=== PATIENT | female | born 2000 | race African-American/Black ===

== ENCOUNTER 2019-10-01 16:06 | Emergency (ER) | payer OTHER, SELFPAY ==
--- NOTE | ~2019-10-01 | CT_ITS ---
EXAMINATION: CTA chest PE protocol DATE: 10/01/2019 19:08 CDT INDICATION: Shortness of breath TECHNIQUE: Computed tomographic angiography (CTA) of the chest was performed with 100 mL Omnipaque-35 0 intravenous contrast. The dose-length product was 137.32 mGy-cm. Maximum intensity projection 3D-re constructions of the aorta and other arteries were constructed by the technologist on a separate work station. Automated exposure control and iterative reconstruction technique were employed. COMPARISON: Chest dated 10/01/2019 FINDINGS: The study is suboptimal for evaluation of peripheral pulmonary arteries due to timing of co ntrast administration. No large central pulmonary embolism. Heart size normal. No pleural or pericard ial effusion. There is patchy hypoperfusion the upper pole of the right kidney which is only partially visualized, concerning for pyelonephritis. No thoracic lymphadenopathy. No evidence for aortic aneurysm or dissec tion. No focal airspace consolidation. No suspicious pulmonary nodules or masses. No endobronchial le sions. No significant osseous abnormality. IMPRESSION: 1. No large central pulmonary embolism. Limited evaluation of the peripheral pulmonary arteries. 2: Patchy hypoperfusion at the upper pole of the right kidney, suspicious for pyelonephritis. Reviewed, dictated and finalized at location A. IMPRESSION: 1. No large central pulmonary embolism. Limited evaluation of the peripheral pu lmonary arteries. 2: Patchy hypoperfusion at the upper pole of the right kidney, suspicious for p yelonephritis.
--- NOTE | ~2019-10-01 | XR_ITS ---
EXAMINATION: XR chest 1V portable 10/01/2019 16:48 INDICATION: Shortness of breath, fever and chills PROCEDURE: 2 view chest COMPARISON: No prior studies for comparison. FINDINGS: The lungs are clear. The cardiomediastinal silhouette is within normal limits. There are no pleural effusions. There is no pneumothorax suspected. IMPRESSION: 1: NO ACUTE CARDIOPULMONARY DISEASE. Reviewed, dictated and finalized at location A.
[2019-10-01 16:09] VITALS: BP 127/78; PULSE 137; RESP 20; TEMP 37.6; O2SAT 100
--- NOTE | 2019-10-01 16:27 | ED.FEVER ---
HPI - Fever General Chief Complaint: Fever <Miguel A Oh MD - Last Filed: 10/14/19 21:51> Stated Complaint: Covid 19 s/sx <Miguel A Oh MD - Last Filed: 10/14/19 21:51> Time Seen by Provider: 10/01/19 16:19 <Miguel A Oh MD - Last Filed: 10/14/19 21:51> History of Present Illness HPI Narrative: Previously healthy 19 yo female presents c/o feeling ill for 3 days. She has had myalgias, heavy breathing and subjective fever. She has had no measured fever, no know sick exposures. <Miguel A Oh MD - Last Filed: 10/14/19 21:51> Related Data Allergies/Adverse Reactions: Allergies Allergy/AdvReac Type Severity Reaction Status Date / Time No Known Allergies Allergy Verified 10/01/19 16:20 <Miguel A Oh MD - Last Filed: 10/14/19 21:51> Review of Systems Review of Systems: All systems reviewed & are unremarkable except as noted in HPI and below <Miguel A Oh MD - Last Filed: 10/14/19 21:51> Constitutional: Constitutional: Reports chills and Reports fever(s) <Miguel A Oh MD - Last Filed: 10/14/19 21:51> ENT: Denies sore throat <Miguel A Oh MD - Last Filed: 10/14/19 21:51> Cardiovascular: Cardiovascular: Denies chest pain and Reports rapid heart rate <Miguel A Oh MD - Last Filed: 10/14/19 21:51> Respiratory: Respiratory: Denies cough and Reports dyspnea <Miguel A Oh MD - Last Filed: 10/14/19 21:51> Gastrointestinal: Gastrointestinal: Denies nausea and Denies vomiting <Miguel A Oh MD - Last Filed: 10/14/19 21:51> Genitourinary: Genitourinary: Denies hematuria and Denies dysuria <Miguel A Oh MD - Last Filed: 10/14/19 21:51> Musculoskeletal: Musculoskeletal: Reports myalgias <Miguel A Oh MD - Last Filed: 10/14/19 21:51> Integumentary/Breasts: Skin/Breast: Denies rash <Miguel A Oh MD - Last Filed: 10/14/19 21:51> Neurologic: Denies numbness and Denies weakness <Miguel A Oh MD - Last Filed: 10/14/19 21:51> PMFSH Past Medical History Medical History: Medical History (Updated 10/02/19 @ 00:00 by [place] Alberto) No significant past medical history <Migeul A Oh MD - Last Filed: 10/14/19 21:51> Social History Social History: Social History (Updated 10/01/19 @ 16:31 by Miguel A Oh MD) Smoking status: Never smoker Gender identity (if verbalized by the patient): Female <Miguel A Oh MD - Last Filed: 10/14/19 21:51> Exam Const: General: healthy appearing, no acute distress and alert <Miguel A Oh MD - Last Filed: 10/14/19 21:51> Orientation/consciousness: patient oriented x3 <Miguel A Oh MD - Last Filed: 10/14/19 21:51> HENMT: Head: normal to inspection <Miguel A Oh MD - Last Filed: 10/14/19 21:51> Resp: Effort & Inspection: normal respiratory effort and tachypneic <Miguel A Oh MD - Last Filed: 10/14/19 21:51> Auscultation: clear to auscultation bilaterally <Miguel A Oh MD - Last Filed: 10/14/19 21:51> Cardio: Rate: tachycardic <Miguel A Oh MD - Last Filed: 10/14/19 21:51> Rhythm: regular rhythm <Miguel A Oh MD - Last Filed: 10/14/19 21:51> GI: GI Palp: Yes Soft to palpation and No Tenderness to palpation present (GI) <Miguel A Oh MD - Last Filed: 10/14/19 21:51> Skin: General skin exam: normal color <Miguel A Oh MD - Last Filed: 10/14/19 21:51> Neuro: General: patient oriented x3, moves all extremities and CN's II-XI intact bilaterally <Miguel A Oh MD - Last Filed: 10/14/19 21:51> Speech: normal speech <Miguel A Oh MD - Last Filed: 10/14/19 21:51> Extrem: General: normal to inspection and no edema <Miguel A Oh MD - Last Filed: 10/14/19 21:51> Other: No calf tenderness <Miguel A Oh MD - Last Filed: 10/14/19 21:51> Course Course Emergency Course: Assumed patient care from Dr. Oh at 1900
[2019-10-01 17:45] LABS: Basophils Percent Auto 0.2 % (0.2-1.2); Hemoglobin 12.3 g/dL (12.0-15.0); Immature Granulocyte Absolute 0.06 K/mm3 (0.00-0.031); Immature Granulocyte Percent A 0.4 % (0-0.5); Lymphocytes Absolute Auto 1.25 K/mm3 (0.9-3.2); Lymphocytes Percent Auto 8.3 % (18.3-44.2); Mean Corpuscular HGB Conc 32.4 g/dl (32-36); Mean Corpuscular Hemoglobin 30.1 pg (26-34); Mean Corpuscular Volume 92.9 fl (80-100); Mean Platelet Volume 10.6 fl (7.4-10.4); Monocytes Absolute Auto 1.3 K/mm3 (0.1-0.6); Monocytes Percent Auto 8.4 % (2.6-8.5); Neutrophils Absolute Auto 12.5 K/mm3 (1.3-6.7); Neutrophils Percent Auto 82.7 % (45.5-73.1); Platelet Count Result 202 k/mm3 (150-375); Red Blood Count 4.09 M/mm3 (4.2-5.4); Red Cell Distribution Width 12.7 % (11.5-14.5); White Blood Count 15.1 K/mm3 (4.5-10.0)
[2019-10-01 17:51] LABS: Blood Urea Nitrogen 6 mg/dL (7-17); Carbon Dioxide 24 mmol/L (22-30); Chloride 98 mmol/L (98-107); Estimated CRCL calculation 54 ml/min; Estimated Glomerular Filt Rate > 60; Glucose 104 mg/dL (65-105); Potassium 3.3 mmol/L (3.4-5.0); Sodium 133 mmol/L (137-145)
[2019-10-01 17:52] LABS: D Dimer 2.34 ug/mL (<0.48)
[2019-10-01] MEDS: SODIUM CHLORIDE 0.9% IV 1,000 ML 999 ML IV CONT ×2 (18:15→20:45)
[2019-10-01 18:17] VITALS: BP 137/85; PULSE 113; RESP 22; O2SAT 99
--- NOTE | 2019-10-01 18:21 | PC.NURSE ---
Pt is unable to give urine sample at this time.
[2019-10-01 19:52] VITALS: BP 104/70; PULSE 120; RESP 17; O2SAT 98
[2019-10-01 20:09] LABS: Add Urine Microscopic? YES; Appearance Urine Clear (Clear); Bilirubin Urine Negative (Negative); Blood Urine Negative (Negative); Color Urine Colorless (Yellow); Glucose Urine UA Negative (Negative); Ketones Urine Trace mg/dL (Negative); Leukocyte Esterase Ur 1+ LEU/UL (Negative); Nitrate Urine Negative (Negative); Protein Urine 1+ mg/dL (Negative); RBC Urine 0-2 /hpf (0-2); Squamous Epithelial Cell Urine Rare /hpf (Few)
[2019-10-01 20:30] LABS: Specific Grav Ur 1.036 (1.001-1.035)
[2019-10-01] MEDS: ACETAMINOPHEN 500 MG TABLET 1000 MG PO (20:45)
[2019-10-01 22:05] VITALS: BP 136/68; PULSE 131; RESP 20; O2SAT 98
[2019-10-02 13:19] LABS: SARS-CoV-2 RNA PCR Negative
== END 2019-10-01 22:26 | disposition home or self-care (01) ==
PROVIDERS: Emergency Medicine; Emergency Provider Emergency Medicine
DX: N12 Tubulo-interstitial nephritis, not specified as acute or chronic (principal); Z20.828 Contact with and (suspected) exposure to other viral communicable diseases
CPT/HCPCS: 36415; 71045; 71275; 80048; 81001; 81025; 85025; 85380; 87077; 87086; 87088; 87186; 87635; 96361; 96365; 99284; A9270; C9803; J0696; J7030; Q9967; U0003